=== PATIENT | female | born 1990 | race Caucasian/White ===

== ENCOUNTER 2016-09-15 16:57 | Inpatient (IN) | payer OTHER ==
[~2016-09-15] VITALS: Ht 167.6 cm; Wt 117.9 kg
[2016-09-15 17:56] LABS: HEMOGLOBIN 9.4 gm/dl (12.3-15.3); RED BLOOD COUNT 3.3 M/UL (4.00-5.10); WHITE BLOOD COUNT 7.1 K/UL (4.5-11.0)
[2016-09-15 18:10] LABS: BUN/CREATININE RATIO 15 (0-10)
[2016-09-17 02:42] LABS: HEMOGLOBIN 9.3 gm/dl (12.3-15.3)
== END 2016-09-18 16:30 | disposition home or self-care (01) | DRG 775 ==
LOC: GENOP 16:57 → OB 16:57 → GENOP 17:43 → OB 09-16 06:07 → GENOP 09-16 08:27 → OB 09-16 08:28 → GENOP 09-16 08:28 → OB 09-16 16:21 → EDSTATUS 09-18 22:25
PROVIDERS: Obstetrics & Gynecology; ADMIT Obstetrics & Gynecology
PROC: 10E0XZZ Delivery of Products of Conception, External Approach (ICD-10-PCS; principal; 2016-09-15)
PROC: 0KQM0ZZ Repair Perineum Muscle, Open Approach (ICD-10-PCS; 2016-09-15)
PROC: 10907ZC Drainage of Amniotic Fluid, Therapeutic from Products of Conception, Via Natural or Artificial Opening (ICD-10-PCS; 2016-09-15)
PROC: 3E0234Z Introduction of Serum, Toxoid and Vaccine into Muscle, Percutaneous Approach (ICD-10-PCS; 2016-09-18)
DX: O14.14 Severe pre-eclampsia complicating childbirth (principal); O70.1 Second degree perineal laceration during delivery; O99.214 Obesity complicating childbirth; Z3A.38 38 weeks gestation of pregnancy; Z37.0 Single live birth; Z80.49 Family history of malignant neoplasm of other genital organs; Z83.3 Family history of diabetes mellitus; Z82.3 Family history of stroke; Z82.49 Family history of ischemic heart disease and other diseases of the circulatory system; Z23 Encounter for immunization
CPT/HCPCS: 36415; 51702; 80053; 80307; 81001; 82800; 83735; 84550; 85014; 85018; 85025; 85610; 85730; 90707; J0360; J0610; J2590; J2795; J3010; J3430; J3475; J7120

== ENCOUNTER 2021-03-15 09:58 | Outpatient (CLI) | payer OTHER | END 2021-03-15 13:08 | disposition home or self-care (01) | LOC: GENOP 09:58 | DX: O36.8130 Decreased fetal movements, third trimester, not applicable or unspecified (principal); Z3A.35 35 weeks gestation of pregnancy; O99.343 Other mental disorders complicating pregnancy, third trimester; F32.A Depression, unspecified; F41.9 Anxiety disorder, unspecified | CPT/HCPCS: 59025; 81001; 96360; 96361 ==

== ENCOUNTER 2021-04-07 16:43 | Inpatient (IN) | payer OTHER ==
[~2021-04-07] VITALS: Ht 167.6 cm; Wt 115.7 kg
[2021-04-07 18:09] LABS: HEMOGLOBIN 10.9 gm/dl (12.3-15.3); RED BLOOD COUNT 3.4 M/UL (4.00-5.10); WHITE BLOOD COUNT 8.5 K/UL (4.5-11.0)
[2021-04-07] MEDS ORDERED: ZOLOFT25 MG PO (18:37)
[2021-04-07] MEDS ORDERED: PRENATAL TABLE1 EAC1 PO (18:37)
[2021-04-09 06:14] LABS: HEMOGLOBIN 11.4 gm/dl (12.3-15.3)
[2021-04-09] MEDS ORDERED: IBUPROFEN600 MG PO (13:45)
[2021-04-09] MEDS ORDERED: COLACE 100MG C100 MG PO (13:45)
== END 2021-04-09 16:04 | disposition home or self-care (01) | DRG 807 ==
LOC: GENOP 16:43 → OB 17:29
PROVIDERS: ADMIT Obstetrics & Gynecology
PROC: 0U7C7ZZ Dilation of Cervix, Via Natural or Artificial Opening (ICD-10-PCS; 2021-04-04)
PROC: 3E033VJ Introduction of Other Hormone into Peripheral Vein, Percutaneous Approach (ICD-10-PCS; 2021-04-07)
PROC: 4A1HXCZ Monitoring of Products of Conception, Cardiac Rate, External Approach (ICD-10-PCS; 2021-04-07)
PROC: 10E0XZZ Delivery of Products of Conception, External Approach (ICD-10-PCS; principal; 2021-04-08)
PROC: 0KQM0ZZ Repair Perineum Muscle, Open Approach (ICD-10-PCS; 2021-04-08)
PROC: 10907ZC Drainage of Amniotic Fluid, Therapeutic from Products of Conception, Via Natural or Artificial Opening (ICD-10-PCS; 2021-04-08)
DX: O99.214 Obesity complicating childbirth (principal); Z37.0 Single live birth; Z3A.38 38 weeks gestation of pregnancy; E66.01 Morbid (severe) obesity due to excess calories; Z20.822 Contact with and (suspected) exposure to COVID-19; Z90.49 Acquired absence of other specified parts of digestive tract; O70.1 Second degree perineal laceration during delivery
CPT/HCPCS: 36415; 81001; 85014; 85018; 85025; J2590; J7120

== ENCOUNTER → 2021-09-04 | Outpatient (CLI) | payer OTHER ==
[~2021-09-04] MED LIST: COLACE 100MG C100 MG PO; DOCUSATE SODIU250 MG PO; HYDROCODONE-AC1 EACH PO; IBUPROFEN600 MG PO; PRENATAL TABLE1 EAC1 PO; SPRINTEC 28 DA1 EACH PO; ZOLOFT25 MG PO; ZOLOFT50 MG PO
[2021-09-04 09:03] LABS: HEMOGLOBIN 12.2 gm/dl (12.3-15.3); RED BLOOD COUNT 4.16 M/UL (4.00-5.10); WHITE BLOOD COUNT 6.2 K/UL (4.5-11.0)
== END ==
LOC: OPSV2 08:00
PROVIDERS: Obstetrics & Gynecology
DX: Z01.812 Encounter for preprocedural laboratory examination (principal)
CPT/HCPCS: 36415; 81001; 85025

== ENCOUNTER → 2021-09-08 | Day surgery (SDC) | payer OTHER | END | disposition home or self-care (01) | LOC: EDSTATUS 07:30 → OR 07:30 | DX: N81.9 Female genital prolapse, unspecified (principal); N72 Inflammatory disease of cervix uteri; F41.9 Anxiety disorder, unspecified; F32.A Depression, unspecified; Z79.899 Other long term (current) drug therapy | CPT/HCPCS: 36415; 84702; J0690; J1100; J1170; J1885; J2001; J2250; J2370; J2405; J2704; J2710; J3010 ==